=== PATIENT | male | born 1965 | race Caucasian/White ===

== ENCOUNTER 2016-06-01 05:30 | Day surgery (SDC) | payer OTHER ==
[~2016-06-01 05:30] MED LIST: ASPIRIN81 M1 PO; BENADRYL25 M3 PO; COREG3.125 M1 PO; CPAP; FISH OIL 1,0001 EA10 PO; LIPITOR80 M1 PO; MULTIVITAMIN; OMEPRAZOLE40 M2 PO; PRINIVIL5 M1 PO; SYNTHROID88 MC1 PO
== END 2016-06-01 13:10 ==
LOC: SRG 05:30 → SHSB 05:33 → ORW 07:23 → PACU 09:41 → SHSB 10:15
PROC: 0YUA4JZ Supplement Bilateral Inguinal Region with Synthetic Substitute, Percutaneous Endoscopic Approach (ICD-10-PCS; principal; 2016-06-01)
PROC: 8E0W4CZ Robotic Assisted Procedure of Trunk Region, Percutaneous Endoscopic Approach (ICD-10-PCS; 2016-06-01)
DX: K40.20 Bilateral inguinal hernia, without obstruction or gangrene, not specified as recurrent (principal); I10 Essential (primary) hypertension; I25.10 Atherosclerotic heart disease of native coronary artery without angina pectoris; E78.5 Hyperlipidemia, unspecified; E03.9 Hypothyroidism, unspecified; F41.9 Anxiety disorder, unspecified; K21.9 Gastro-esophageal reflux disease without esophagitis; G47.30 Sleep apnea, unspecified; G47.00 Insomnia, unspecified; Z87.891 Personal history of nicotine dependence; Z98.52 Vasectomy status; Z95.5 Presence of coronary angioplasty implant and graft; Z79.82 Long term (current) use of aspirin; Z79.899 Other long term (current) drug therapy; Z98.890 Other specified postprocedural states
CPT/HCPCS: C1781; C9290; J0690; J2765